=== PATIENT | male | born 2000 | race Caucasian/White ===

== ENCOUNTER 2020-06-16 06:49 | Emergency (ER) | payer OTHER ==
[~2020-06-16] VITALS: Ht 172.7 cm; Wt 87.5 kg
[2020-06-16] MEDS ORDERED: NS 1,000 ML IV ONE (07:15)
[2020-06-16 07:53] LABS: BASO # 0.1 10^3/uL (0.0-0.2); BASO % 0.6 % (0.0-1.0); EOS # 0.3 10^3/uL (0.0-0.5); EOS % 3.8 % (0.0-3.0); HEMATOCRIT 47.6 % (42.0-52.0); HEMOGLOBIN 16.2 g/dl (13.5-17.5); LYMPH # 2.6 10^3/uL (1.5-5.0); MEAN CORPUSCULAR HEMOGLOBIN 30.7 pg (27.0-33.0); MEAN CORPUSCULAR VOLUME 90.3 fl (80.0-96.0); MONO # 0.7 10^3/uL (0.0-0.8); MONO % 7.5 % (2.0-8.0); NEUTROPHILS # 5.1 10^3/uL (1.5-8.5); NEUTROPHILS % 57.6 % (36.0-66.0); PLATELET COUNT, AUTOMATED 270 10^3/uL (150-450); RED BLOOD COUNT 5.27 10^6/uL (4.30-6.10); WHITE BLOOD COUNT 8.8 10^3/uL (4.0-10.0)
[2020-06-16 08:34] LABS: ALBUMIN 4.2 GM/DL (3.2-5.2); ALT/SGPT 26 U/L (12-78); AMYLASE 36 U/L (25-115); BILIRUBIN,DIRECT 0.2 MG/DL (0.0-0.2); BILIRUBIN,TOTAL 0.6 MG/DL (0.2-1.0); BLOOD UREA NITROGEN 17 MG/DL (7-18); CALCIUM LEVEL 9.2 MG/DL (8.5-10.1); CARBON DIOXIDE LEVEL 25 MEQ/L (21-32); CHLORIDE LEVEL 101 MEQ/L (98-107); CK-MB VALUE MASS 1.2 NG/ML (<3.6); CPK CREATINE PHOSPHOKINASE 204 U/L (39-308); CREATININE FOR GFR 1.24 MG/DL (0.70-1.30); GLOMERULAR FILTRATION RATE > 60.0 (>60); GLUCOSE, FASTING 83 MG/DL (70-100); LIPASE 71 U/L (73-393); MB/CK RELATIVE INDEX 0.59 (< OR =4); POTASSIUM SERUM 3.8 MEQ/L (3.5-5.1); SODIUM LEVEL 135 MEQ/L (136-145); TROPONIN I < 0.02 NG/ML (< 0.10)
[2020-06-16] MEDS ORDERED: VANC125C3 PO (10:17)
[2020-06-16 11:13] VITALS: BP 134/74
--- NOTE | 2020-06-16 15:58 | ECGEPIP ---
[facility] - ED Test Date: 2020-06-16 Pat Name: LIZANDRO PEACE Department: Room: - Gender: Male [employer]: ED : 2000 Requested By: DAVID Mcmullen PA-C Order Number: [id number] Reading MD: Yeyo Lazo Measurements Intervals [place] Rate: 60 P: 84 [place]: 140 QRS: 199 QRSD: 118 T: 39 QT: 392 QTc: 392 Interpretive Statements Normal sinus rhythm with sinus arrhythmia POSSIBLE INCOMPLETE RIGHT BUNDLE BRANCH BLOCK NO PRIORS FOR COMPARISON Electronically Signed on 06-16-2020 15:58:09 EST by Yeyo Lazo
== END 2020-06-16 11:25 | disposition home or self-care (01) ==
LOC: M ED 06:49
DX: F41.9 Anxiety disorder, unspecified (principal); A04.72 Enterocolitis due to Clostridium difficile, not specified as recurrent; F10.20 Alcohol dependence, uncomplicated; Z87.891 Personal history of nicotine dependence